=== PATIENT | male | born 1990 | race Caucasian/White ===

== ENCOUNTER 2017-12-18 15:56 | Emergency (ER) | END 2017-12-18 21:45 | disposition home or self-care (01) ==

== ENCOUNTER 2018-03-25 11:17 | Day surgery (SDC) | END 2018-03-28 13:46 | disposition home or self-care (01) ==

== ENCOUNTER 2018-03-29 08:18 | Day surgery (SDC) | END 2018-03-29 11:14 | disposition home or self-care (01) ==

== ENCOUNTER 2018-04-08 07:07 | Day surgery (SDC) | END 2018-04-08 11:30 | disposition home or self-care (01) ==

== ENCOUNTER 2019-05-22 10:37 | Emergency (ER) | payer OTHER ==
[~2019-05-22] VITALS: Ht 160 cm; Wt 89.0 kg
[~2019-05-22 10:37] MED LIST: CYCL10TA7 PO; FLUO40CA10 PO; HYDR-4011 PO; NAPR-985 PO
[2019-05-22 10:45] VITALS: BP 129/85; PULSE 57; RESP 18; Ht 160 cm; Wt 89.0 kg
[2019-05-22] MEDS ORDERED: KETOROLAC 60 MG INJ IM STA (12:17)
[2019-05-22] MEDS ORDERED: DIAZEPAM 5 MG TAB PO ONE (12:30)
[2019-05-22] MEDS ORDERED: DEXAMETHASONE 10 MG/ML 1 ML INJ IM ONE (12:30)
== END 2019-05-22 12:50 | disposition home or self-care (01) ==
LOC: FTE 10:37
DX: M54.9 Dorsalgia, unspecified (principal)
CPT/HCPCS: 96372; J1100; J1885; Z7502; Z7610